=== PATIENT | female | born 1990 | race Caucasian/White ===

== ENCOUNTER 2022-12-22 16:47 | Emergency (ER) | payer OTHER ==
[~2022-12-22] VITALS: Ht 160 cm; Wt 77.0 kg
[2022-12-22 18:44] LABS: CHLORIDE 110 mEq/L (98-107)
[2022-12-22] MEDS ORDERED: SODIUM CHLORIDE 0.9% 1,000 ML IV ONE (18:45)
[2022-12-22] MEDS ORDERED: MORPHINE SULFATE 4 MG/ML CPJ (NOT FOR IM USE) IV ONE ×2 (18:45→20:30)
[2022-12-22 18:47] LABS: BASOPHILS % 0.4 % (0.0-2.0); EOSINOPHILS % 4.4 % (0.0-5.0); LYMPHOCYTES % 38.3 % (20.0-50.0); MEAN CORPUSCULAR HEMOGLOBIN 29.4 pg (28.0-32.0); MEAN CORPUSCULAR VOLUME 87.8 fL (81.0-99.0); MEAN PLATELET VOLUME 9.3 fl (7.4-10.4); MONOCYTES % 5.7 % (2.0-8.0); NEUTROPHILS % 51.2 % (40.0-76.0); PLATELET 225 x1000/uL (130-400); RED BLOOD CELL COUNT 4.44 mill/uL (4.2-5.4); RED CELL DISTRIBUTION WIDTH 13.2 % (11.6-14.6)
[2022-12-22 19:10] LABS: CLARITY URINE CLEAR (CLEAR); COLOR URINE YELLOW (YELLOW); KETONES URINE NEGATIVE (NEGATIVE); LEUKOCYTE ESTERASE URINE NEGATIVE (NEGATIVE); NITRITE URINE NEGATIVE (NEGATIVE); OCCULT BLOOD URINE 3+ (NEGATIVE); PH URINE 7.5 (4.5-8.0); PROTEIN URINE NEGATIVE (NEGATIVE); SPECIFIC GRAVITY URINE 1.004 (1.005-1.030); UROBILINOGEN URINE 0.2 E.U./dL (0.2-1.0)
[2022-12-22] MEDS ORDERED: IOHEXOL-300 100 ML BOTTLE ONE (21:47)
[2022-12-23] MEDS ORDERED: MORPHINE SULFATE 4 MG/ML CPJ (NOT FOR IM USE) IV STA (04:06)
[2022-12-23] MEDS ORDERED: ONDANSETRON HCL 4MG/2ML INJ IV STA (04:06)
[2022-12-23 04:52] VITALS: BP 131/82
== END 2022-12-23 05:08 | disposition short-term general hospital (02) ==
LOC: ER 16:47
DX: R10.2 Pelvic and perineal pain (principal); R53.1 Weakness; Z98.890 Other specified postprocedural states
CPT/HCPCS: 36415; 74177; 76830; 76856; 80053; 81003; 85025; 96361; 96374; 96376; 99285; J2270; J2405; J7030; Q9967; Z7610